=== PATIENT | female | born 1975 | race Caucasian/White ===

== ENCOUNTER → 2020-03-06 13:27 | Outpatient (BNVA) | payer BC, SELFPAY | PROVIDERS: Family Provider Family Medicine; Referring Provider Chiropractor; Visit Provider Podiatrist Foot & Ankle Surgery | DX: M79.672 Pain in left foot (principal) | CPT/HCPCS: 73630 ==

== ENCOUNTER 2020-04-22 16:36 | Outpatient (CLI) | payer BC, SELFPAY | END 2020-04-22 16:37 | disposition home or self-care (01) | LOC: SPT 16:36 | PROVIDERS: Family Provider Family Medicine; Visit Provider Podiatrist Foot & Ankle Surgery | DX: Z46.89 Encounter for fitting and adjustment of other specified devices (principal); M20.21 Hallux rigidus, right foot | CPT/HCPCS: L3030 ==

== ENCOUNTER → 2020-08-05 10:54 | Outpatient (BNVA) | payer BC, SELFPAY | PROVIDERS: Family Provider Family Medicine; Visit Provider Podiatrist Foot & Ankle Surgery | DX: Z20.822 Contact with and (suspected) exposure to COVID-19 (principal) | CPT/HCPCS: 87635 ==

== ENCOUNTER 2020-08-09 05:46 | Day surgery (SDC) | payer BC, SELFPAY ==
[2020-08-08 13:41] VITALS: BMI 25.0
[2020-08-09 06:12] VITALS: BP 104/73; PULSE 67; RESP 18; TEMP 36.6; O2SAT 100
--- NOTE | 2020-08-09 06:32 | W.PM.OPSUD ---
Surgery/Procedure H&P Update DATE OF PROCEDURE: August 09, 2020 DATE H&P PERFORMED: 07/15/20 H&P UPDATE INFORMATION: I have reviewed H&P completed within last 30 days, I have examined patient prior to procedure and No changes to prior documentation PREOP DIAGNOSIS: Hallux rigidus left foot PLANNED PROCEDURE: Operation Date: 08/09/20 07:00 Proposed Procedures p 46060/Cheilectomy Left Foot M79.673(Left) - Ras Benson DPM
[2020-08-09] MEDS: sodium chloride 0.9% 1,000 ML 30 ML IV (06:50)
[2020-08-09] MEDS: clindamycin 600 MG/50 ML PREMIX 100 MG IV (06:59)
[2020-08-09 07:38] VITALS: BP 93/70; PULSE 80; RESP 18; TEMP 36.4; O2SAT 98
--- NOTE | 2020-08-09 07:38 | XR_ITS ---
WS: [id number] Left foot, 3 views, 08/09/2020 Clinical Data: post op cheilectomy Comparison: Left foot, 03/06/2020. Findings: No fractures or dislocations are seen. No bone destruction or erosion is noted. The joint spaces and soft tissues are normal. XR/XR foot LT min 3V* [id number] Impression: Negative left foot.
--- NOTE | 2020-08-09 07:39 | P.OP_ITS ---
Operative Report Date of procedure: August 09, 2020 Pre-op Diagnosis: Hallux rigidus left foot Post-op diagnosis: same Post-op Findings: Osteochondral defect at the second quadrant left first metatarsal, dorsal enthesophyte at the first metatarsal head and proximal phalanx base left first metatarsophalangeal joint Procedure Done: Cheilectomy, left foot CPT code 21204 Implants: 3-0 Vicryl, 4-0 Vicryl, 5-0 Monocryl Specimens removed/disposition: None Pathology: none sent Surgeon: Ras Benson D.P.M. Metal Mine Inspector: Rip Anesthesia: MAC Estimated blood loss: Less than 5 mL Tourniquet time: Less than 30 minutes, see intraoperative documentation IV fluids: None Urine output: None Complications: None Findings: See postop findings above Condition: stable Disposition: PACU Brief History: Ms. Evans is a pleasant 45-year-old female who has had progressive pain in her left first metatarsophalangeal joint that at this point is affecting her everyday life and ability to enjoy recreational activities. She does have history of injury where she has an avulsion fracture at the lateral aspect of the proximal phalanx left hallux. Conservative treatments h ave included oral steroidal and nonsteroidal anti-inflammatories. Offloading, functional orthotic with reverse Aguilar's pad and stretching exercises with supportive shoes. This is failed to alleviate her pain and would like to discuss surgical options. Risks include pain, bleeding, numbness, infection, hypersensitivity, permanent numbness, permanent swelling, bruising, surgical site dehiscence, painful scar, keloid scar, limited range of motion of the first metatarsophalangeal joint, failure to alleviate pain and need for further surgical intervention. Patient is agreeable wishes to proceed. She was interviewed preoperatively, informed consent is signed, I initialed her left foot. No guarantees written, expressed or implied. Procedure: Under mild sedation the patient was brought to the operating room and placed on the operating table in supine position. A timeout was performed. Anesthesia was administered by the anesthesia service. Local anesthesia injected by myself consisting of 30 cc of 0.5% Marcaine plain and a left Ling block fashion. Well-padded pneumatic tourniquet applied to the left ankle. Left lower extremity was scrubbed, prepped and draped utilizing normal aseptic technique. Left foot was examined a weighted with an Esmarch bandage and a tourniquet inflated to 250 mmHg. Attention was directed to the dorsal medial aspect of the first metatarsophalangeal joint of the left foot. A linear longitudinal incision was made with a #15 blade through skin with dissection carried down through subcutaneous tissue down the layer of capsule and periosteum. Fresh blade utilized to perform capsular and periosteal incision in the head of the first metatarsal and the base of the proximal phalanx were directly visualized. There is bony hypertrophy of the first metatarsal head dorsally and medially with bony overgrowth this was resected with a sagittal saw and smoothed with a rongeur and file. A small lip at the base of the proximal phalanx dorsally also excised utilizing a rongeur. I was able to visualize the first metatarsal head which showed a osteochondral defect measuring 2 mm x 3 mm with well adhered margins without any elevation of cartilage this was at the second quadrant of the first metatarsal or 2 o'clock position. Incision site was flushed with copious amounts of sterile saline solution. Range of motion was performed at the first metatarsal phalangeal joint this was smooth without crepitus with increased dorsiflexion able to obtain 60 degrees intraoperatively. Joint capsule periosteum closed utilizing 3-0 Vicryl. Subcutaneous tissue closed utilizing 4- 0 Vicryl and skin reapproximated utilizing 5-0 Monocryl in a running intracuticular fashion. 10 cc of Exparel infiltrated in a grid like fashion subcutaneously per manufacture recommendation at the operative site. Incision site was dressed with Adaptic, sterile 4 x 4, Kerlix and Anthony wrap, cam boot was applied. Tourniquet was deflated and a prompt hyperemic response was noted to the distal digits of the left foot. Patient tolerated the procedure well and was transferred to the PACU with vital signs stable and vascular status intact. Following a period of postoperative monitoring will be discharged home. Was given my cell phone number and discharge instructions as well as follow-up.
[2020-08-09 08:08] VITALS: BP 102/70; PULSE 80; RESP 18; O2SAT 100
--- NOTE | 2020-08-09 10:03 | ANES.PREANE2 ---
Pre-Anesthetic Assessment Pre-Anesthetic Assessment: Height/Weight: Height 1.7 m Weight 72.575 kg Temp Pulse Resp BP Pulse Ox 97.5 F L 80 18 102/70 100 08/09/20 07:38 08/09/20 08:08 08/09/20 08:08 08/09/20 08:08 08/09/20 08:08 Preop Diagnosis: Hallux rigidus left foot Proposed Procedure: Operation Date: 08/09/20 07:00 Proposed Procedures p 59767/Cheilectomy Left Foot M79.673(Left) - Ras Benson, DPM Was Beta Saul taken within 24 hours: N/A Last intake: Intake Last Liquid Date 08/08/20 Last Solid Date 08/08/20 Social: Social History: No alcohol and No tobacco Exam: Pre-Anes Outpt Exam: alert, oriented x 3, clear to auscultation bilaterally and regular rate & rhythm Airway: Submandibular: WNL Cervical ROM: WNL MP: 2 Dentition: Full Neuropsych: Neuropsych: TUCKER Anesthetic Plan: ASA status: 1 Anesthesia: MAC Risk of > 500 ml blood loss (7ml/kg in children): No PFSH Anesthesia PFSH: Surgical History History of back surgery History of bladder repair surgery History of hysterectomy Family History Mother Cancer Other Diabetes Social History Smoking and tobacco status: never smoked Household members: spouse and children Marital status: Current occupational status: employed Data Anesthesia Cardiac Studies: No Data to Display
--- NOTE | 2020-08-09 10:03 | ANE.PACU2 ---
Inpatient post-anesthesia follow up: Airway intact: Yes Vital signs: Temperature 97.5 F Pulse Rate 80 Respiratory Rate 18 Blood Pressure 102/70 Pulse Oximetry 100 Oxygen Delivery Me thod Room Air Oxygen Flow Rate Fraction of Inspir ed Oxygen Hydration adequate: Yes Nausea and vomiting: No Pain level: 1 Mental status: Baseline
== END 2020-08-09 08:30 | disposition home or self-care (01) ==
PROVIDERS: PCP Internal Medicine; Visit Provider Podiatrist Foot & Ankle Surgery
PROC: (CPT 28289; principal; 2020-08-09 07:00)
DX: M20.22 Hallux rigidus, left foot (principal)
CPT/HCPCS: 28289; 73630; C9290; J2704; J3010; J3490; J7030

== ENCOUNTER → 2020-09-05 15:42 | Outpatient (BNVA) | payer BC, SELFPAY | PROVIDERS: PCP Internal Medicine; Visit Provider Podiatrist Foot & Ankle Surgery | DX: M20.22 Hallux rigidus, left foot (principal); Z98.890 Other specified postprocedural states | CPT/HCPCS: 73630 ==

== ENCOUNTER 2020-09-17 10:28 | Outpatient (CLI) | payer BC, SELFPAY ==
[2020-09-17 10:48] LABS: Basophils % 1.1 %; Eosinophils # 0.2 10^3/uL (0.0-0.8); Eosinophils % 5.9 %; Hematocrit 40.5 % (37.0-47.0); Hemoglobin 13.5 g/dL (11.5-15.3); Lymphocytes # 1.7 10^3/uL (0.8-4.8); Lymphocytes % 46.5 %; Mean Corpuscular HGB Conc 33.3 g/dL (30.0-36.0); Mean Corpuscular Hemoglobin 32.1 pg (28.0-34.0); Mean Corpuscular Volume 96.2 fL (81-99); Mean Platelet Volume 9.1 fL (7.4-10.4); Monocytes # 0.3 10^3/uL (0.2-0.9); Neutrophils # 1.33 10^3/uL (1.8-7.7); Neutrophils % 37.5 %; Nucleated Red Blood Cells % 0 %; Platelet Count 214 10^3/cmm (130-400); Red Blood Count 4.21 10^6/uL (4.1-5.3); Red Cell Distribution Width 11.7 % (12.1-15.1); White Blood Count 3.6 10^3/uL (4.0-10.0)
[2020-09-17 11:04] LABS: Blood Urea Nitrogen 18 mg/dL (6-20); C Reactive Protein 7.4 mg/L (0.0-4.9); Calcium 8.8 mg/dL (8.5-10.5); Carbon Dioxide 27 mmol/L (22-29); Chloride 98 mmol/L (98-107); Glomerular Filtration Rate 68.3 mL/min (90-130); Glucose 89 mg/dL (65-115); Osmolality Calculated 279 mOsm/kg (285-295); Sodium 134 mmol/L (136-145)
[2020-09-17 11:31] LABS: Erythrocyte Sedimentation Rate 9 mm/hr (0-15)
== END 2020-09-17 10:29 | disposition home or self-care (01) ==
PROVIDERS: PCP Internal Medicine; Visit Provider Podiatrist Foot & Ankle Surgery
DX: T81.41XA Infection following a procedure, superficial incisional surgical site, initial encounter (principal)
CPT/HCPCS: 36415; 80048; 85025; 85651; 86140

== ENCOUNTER → 2020-09-19 15:25 | Outpatient (BNVA) | payer BC, SELFPAY | PROVIDERS: PCP Internal Medicine; Visit Provider Podiatrist Foot & Ankle Surgery | DX: T81.41XA Infection following a procedure, superficial incisional surgical site, initial encounter (principal); M20.22 Hallux rigidus, left foot; Z98.890 Other specified postprocedural states | CPT/HCPCS: 73630 ==

== ENCOUNTER 2020-11-06 11:56 | Outpatient (CLI) | payer BC, SELFPAY ==
--- NOTE | 2020-11-06 12:01 | MM_ITS ---
WS: [id number] SCREENING DIGITAL MAMMOGRAM WITH CAD HISTORY: SCREENING COMPARISON: 09/23/2018 and 06/26/2016 Bilateral CC and MLO views submitted. Computer aided detection analyzed. Breast composition: The breasts are heterogeneously dense, which may obscure small masses. Stable mas s in the LEFT breast near 3:00 posteriorly. This mass measures 10 mm and is slightly lobulated contai aneudy calcification. There is a new partially obscured lobulated nodule in the posterior LEFT breast n ear 9:00. Increased asymmetry and slight distortion in the superior RIGHT breast on the MLO. MM/[place] [id number] IMPRESSION: BI-RADS: 0-Incomplete: Need additional imaging evaluation FOLLOW UP: Need Additional Imaging LEFT breast: Spot compression views (CC and MLO). True ML. Exaggerated lateral CC. Ultrasound to follow if abnormality persists. RIGHT breast: Spot compression views (CC and MLO). True ML. Ultrasound to follo w if abnormality persists.
== END 2020-11-06 11:57 | disposition home or self-care (01) ==
LOC: RADSHAW 11:59
PROVIDERS: PCP Family Medicine; Visit Provider Family Medicine
DX: Z12.31 Encounter for screening mammogram for malignant neoplasm of breast (principal)
CPT/HCPCS: 77067

== ENCOUNTER 2020-11-20 10:05 | Outpatient (CLI) | payer BC, SELFPAY ==
--- NOTE | 2020-11-20 10:13 | US_ITS ---
WS: [id number] ADDITIONAL VIEWS BILATERAL MAMMOGRAM AND BILATERAL BREAST ULTRASOUND (limited RIGHT and incomplete LE FT breast ultrasound). ADDITIONAL VIEWS BILATERAL MAMMOGRAM HISTORY: ABNORMAL MAMMOGRAM COMPARISON: 09/23/2018 and 09/21/2017 Right breast: Asymmetry persists in the upper outer quadrant. Partially obscured nodules and mild inc reased density. The remaining breast is stable with dense fibroglandular tissue. Left breast: There are multiple partially obscured nodules within the LEFT breast. These are scattere d above and below the nipple line and medial and lateral breast. One of these nodules contains calcif ications measuring 12 mm in the upper outer quadrant. Breast ultrasound will be performed. BREAST ULTRASOUND RIGHT breast, limited. In the upper outer quadrant of the RIGHT breast at 9:00, 2 cm from the nipple is a simple cyst measuring 4 x 4 by 5 mm. There are additional numerous cysts in the upper outer quad rant. There is a larger lobulated cyst which probably corresponds to the mammographic abnormality epifanio suring 1.2 x 1.3 x 0.7 cm. LEFT breast, complete. Multiple cysts are noted within the breast. There is a solid mass at 3:00, 1 cm from the nipple which contains a biopsy clip. This mass measures 1.0 x 1.0 x 0.8 cm and was a benign fibroadenoma. There i s an additional hypoechoic mass with central increased echogenicity at 6:00, 1 cm from the nipple whi ch may be a small lymph node. There is a cyst at 9:00 1 cm from the nipple measuring 1.0 x 0.8 x 0.7 cm. US/US breast BI limited* [id number] IMPRESSION: BI-RADS: 2-Benign FOLLOW UP: 1 Year Follow-up
== END 2020-11-20 10:06 | disposition home or self-care (01) ==
LOC: RADSHAW 10:06
PROVIDERS: PCP Family Medicine; Visit Provider Family Medicine
DX: R92.8 Other abnormal and inconclusive findings on diagnostic imaging of breast (principal); N60.02 Solitary cyst of left breast; N60.01 Solitary cyst of right breast; N63.25 Unspecified lump in the left breast, overlapping quadrants
CPT/HCPCS: 76642; 77066

== ENCOUNTER 2021-01-12 19:35 | Emergency (ER) | payer BC, SELFPAY ==
[2021-01-12 19:36] VITALS: BP 129/85; PULSE 75; RESP 21; TEMP 36.7; O2SAT 99; BMI 25.0
--- NOTE | 2021-01-12 20:03 | CTR_ITS ---
PROCEDURE INFORMATION: Exam: CT Abdomen And Pelvis Without Contrast Exam date and time: 01/12/2021 8:03 PM Age: 45 years old Clinical indication: Abdominal pain; Right; Prior surgery; Surgery date: 6+ months; Surgery type: Back, hyst, bladder; Patient HX: C/O R flank and R groin pain; Additional info: Right flank and groin pain TECHNIQUE: Imaging protocol: Computed tomography of the abdomen and pelvis without contrast. Sagittal and coronal reformatted images were created and reviewed. Radiation optimization: All CT scans at this facility use at least one of these dose optimization techniques: automated exposure control; mA and/or kV adjustment per patient size (includes targeted exams where dose is matched to clinical indication); or iterative reconstruction. COMPARISON: [place] [id number] 12/19/2014 12:32 PM RADIATION DOSE METRICS: Total DLP (mGy-cm): 1014.75 FINDINGS: Limitations: Evaluation of solid organs and vasculature is limited without intravenous contrast. This is standard protocol for evaluation of possible urolithiasis. Lungs: Visualized lungs are clear. Pleural spaces: No pleural effusion. Heart: Visualized portions of the heart are unremarkable. Liver: The liver is unremarkable. Gallbladder and bile ducts: The gallbladder is unremarkable. No biliary ductal dilatation. Pancreas: The pancreas is unremarkable. No pancreatic ductal dilatation. Spleen: The spleen is unremarkable. Adrenal glands: The right and left adrenal glands are unremarkable. Kidneys and ureters: Nonobstructing stone in the right kidney measuring 2.3 mm. 2.0 mm stone at the right ureterovesicular junction with moderate right hydroureteronephrosis and mild right perinephric/periureteral inflammation. The left kidney is unremarkable. The left ureter is unremarkable. Stomach and bowel: Small hiatal hernia. No acute abnormality in the small bowel. No acute abnormality in the colon. Appendix: The appendix is visualized and is unremarkable. No findings to suggest acute appendicitis. Intraperitoneal space: No free intraperitoneal air. No ascites. No loculated fluid collections to suggest an abscess. Vasculature: Mild atherosclerotic changes in the visualized arteries. No evidence for aortic aneurysm. Lymph nodes: No lymphadenopathy. Urinary bladder: The bladder is incompletely filled, which can limit evaluation. No focal abnormality in the bladder however. Reproductive: Patient has had a previous hysterectomy. Patient has had a previous bilateral oophorectomy. Bones/joints: Bone islands in the right femoral head. Mild degenerative changes in the visualized spine. Stable anterior fusion at L4-L5. Soft tissues: No acute abnormality in the extra-abdominal soft tissues. CT/CT kidney stone [id number] IMPRESSION: 1. 2.0 mm stone at the right ureterovesicular junction with moderate right hydroureteronephrosis and mild right perinephric/periureteral inflammation. 2. Nonobstructing right renal stone. 3. Small hiatal hernia. 4. Incidental/nonacute findings are listed in the report. Radiation Dose CTDIVOL = (mGy): DLP = 1014.75 (mGy-cm)
--- NOTE | 2021-01-12 20:14 | W.ED.ABDPA2 ---
HPI - Abdominal Pain General: Chief Complaint: Abdominal Pain Stated Complaint: Pain Rt Side and Back Time Seen by Provider: 01/12/21 20:02 History of Present Illness: HPI narrative: Patient complains about right flank pain that radiates into the groin for the last 4 to 5 hours before arriving the ER. Has no history of kidney stone does have a history of postlaminectomy syndrome. Patient says she feels pressure in the lower right area of her groin. MD elicited complaint: flank pain Onset (ago): hour(s) Pain Consistency: constant Location: RLQ, R flank and Groin Severity: severe Quality: aching and sharp Exacerbating factors: nothing Relieving factors: nothing Associated Symptoms: Reports no associated symptoms; Denies chills, fever(s), nausea and vomiting Review of Systems Const: Denies: fever(s), chills or body aches Eyes: Denies: change in vision or blurry vision ENMT: Denies: throat pain or nasal congestion Card: Denies: chest pain or dyspnea on exertion Resp: Denies: dyspnea, productive cough or non-productive cough GI: Denies: abdominal pain, nausea or vomiting : Reports: flank pain Musc: Denies: extremity pain Skin/Breast: Denies: rash Neuro: Denies: headache(s) Psych: Denies: anxiety or depression Bert/Lymph: Denies: easy bruising PFSH ED PFSH: Medical History Depression Surgical History History of back surgery History of bladder repair surgery History of hysterectomy Family History Mother Cancer Other Diabetes Social History Smoking and tobacco status: never smoked Household members: spouse and children Marital status: Current occupational status: employed History of recent travel: No Financial difficulty paying for basics: Decline to Answer Physical Exam Const: COMMON NORMALS: no acute distress, average body habitus and patient oriented x3 HENMT: COMMON NORMALS: normocephalic HEAD & SCALP: normal to inspection and normocephalic FACE & SINUS: normal facial exam Eye: COMMON NORMALS: conjunctivae normal GENERAL EYE: appearance normal, both eyes and all related structures CONJUNCTIVA: Yes conjunctivae normal Neck/C-Spine: COMMON NORMALS: no JVD Chest: COMMONS NORMALS: normal inspection of the chest Resp: COMMON NORMALS: normal respiratory effort and clear to auscultation bilaterally AUSCULTATION: clear to auscultation bilaterally Cardio: COMMON NORMALS: no JVD, regular rate and regular rhythm RATE: regular rate RHYTHM: regular rhythm GI: COMMON NORMALS: Normal to inspection, nondistended, normoactive bowel sounds present AUSCULTATION: Yes normoactive bowel sounds PALPATION: Yes Tenderness to palpation present (GI) Details: RLQ : BLADDER/KIDNEY EXAM: Yes CVA tenderness on the right Back/Pelvis: GENERAL BACK: Yes CVA tenderness Extremity: COMMON NORMALS: normal to inspection and full ROM Neuro: COMMON NORMALS: patient oriented x3 Course Vital Signs: Vital signs: Vital Signs Temperature 98.0 F 01/12/21 19:36 Pulse Rate 80 01/12/21 22:27 Respiratory Rate 16 01/12/21 22:27 Blood Pressure 100/58 01/12/21 22:27 Pulse Oximetry 96 01/12/21 22:27 MDM - Abdominal Pain MDM Narrative: Medical decision making narrative: 2 mm urinary calculus at the UV junction on the right. Patient felt much better after pain medication. Patient discharged with a strainer and to follow-up Dr. Avery her primary care if no significant improvement. Lab Data: Labs: Lab Results 01/12/21 01/12/21 01/12/21 Range/Units 20:40 20:40 20:40 WBC 8.5 (4.0-10.0) 10^3/ uL RBC 4.10 (4.1-5.3) 10^6/u L Hgb 13.2 (11.5-15.3) g/dL Hct 39.4 (37.0-47.0) % MCV 96.1 (81-99) fL MCH 32.2 (28.0-34.0) pg MCHC 33.5 (30.0-36.0) g/dL RDW 11.6 L (12.1-15.1) % Plt Count 203 (130-400) 10^3/c mm MPV 9.7 (7.4-10.4) fL Neut % (Auto) 79.9 % Lymph % (Auto) 13.2 % [place] % (Auto) 5.4 % Eos % (Auto) 0.8 % Baso % (Auto) 0.5 % Neut # (Auto) 6.79 (1.8-7.7) 10^3/u L Lymph # (Auto) 1.1 (0.8-4.8) 10^3/u L [place] # (Auto) 0.5 (0.2-0.9) 10^3/u L Eos # (Auto) 0.1 (0.0-0.8) 10^3/u L Baso # (Auto) 0.0 (0.0-0.1) 10^3/u L Nucleated RBC % (a uto) 0 % Nucleated RBCs # 0.0 /100WBC Sodium 138 (136-145) mmol/L Potassium 3.9 (3.5-5.1) mmol/L Chloride 101 (98-107) mmol/L Carbon Dioxide 23 (22-29) mmol/L Anion Gap 17.9 (5-19) BUN 23 H (6-20) mg/dL Creatinine 1.3 H (0.5-0.9) mg/dL GFR Calculation 44.7 L (90-130) mL/min Glucose 123 H (65-115) mg/dL Calculated Osmolal ity 291 (285-295) mOsm/k g Calcium 8.7 (8.5-10.5) mg/dL Total Bilirubin 0.3 (0.15-1.2) mg/dL AST 19 (0-32) U/L ALT 13 (0-33) U/L Alkaline Phosphata se 59 (35-105) IU/L Total Protein 6.1 L (6.6-8.7) g/dL Albumin 4.2 (3.5-5.2) g/dL Globulin 1.9 (1.3-4.6) g/dL Lipase 30 (13-60) U/L HCG, Qual Negative (Negative) Urine Color (Yellow) Urine Appearance (CLEAR) Urine pH (5-7) Ur Specific Gravit y (1.005-1.030) Urine Protein (Negative) Urine Glucose (UA) (Normal) Urine Ketones (Negative) Urine Blood (Negative) Urine Nitrate (Negative) Urine Bilirubin (Negative) Prot Sulfosalicyli c Acd (Negative) Urine Urobilinogen (Negative) mg/dL Ur Leukocyte Kassi ase (Negative) Urine RBC (0-2) /hpf Urine WBC (0-5) /hpf Ur Squamous Epith Cells (0-5) /hpf Amorphous Sediment Urine Bacteria (NONE) /hpf 01/12/21 Range/Units 21:22 WBC (4.0-10.0) 10^3/ uL RBC (4.1-5.3) 10^6/u L Hgb (11.5-15.3) g/dL Hct (37.0-47.0) % MCV (81-99) fL MCH (28.0-34.0) pg MCHC (30.0-36.0) g/dL RDW (12.1-15.1) % Plt Count (130-400) 10^3/c mm MPV (7.4-10.4) fL Neut % (Auto) % Lymph % (Auto) % [place] % (Auto) % Eos % (Auto) % Baso % (Auto) % Neut # (Auto) (1.8-7.7) 10^3/u L Lymph # (Auto) (0.8-4.8) 10^3/u L [place] # (Auto) (0.2-0.9) 10^3/u L Eos # (Auto) (0.0-0.8) 10^3/u L Baso # (Auto) (0.0-0.1) 10^3/u L Nucleated RBC % (a uto) % Nucleated RBCs # /100WBC Sodium (136-145) mmol/L Potassium (3.5-5.1) mmol/L Chloride (98-107) mmol/L Carbon Dioxide (22-29) mmol/L Anion Gap (5-19) BUN (6-20) mg/dL Creatinine (0.5-0.9) mg/dL GFR Calculation (90-130) mL/min Glucose (65-115) mg/dL Calculated Osmolal ity (285-295) mOsm/k g Calcium (8.5-10.5) mg/dL Total Bilirubin (0.15-1.2) mg/dL AST (0-32) U/L ALT (0-33) U/L Alkaline Phosphata se (35-105) IU/L Total Protein (6.6-8.7) g/dL Albumin (3.5-5.2) g/dL Globulin (1.3-4.6) g/dL Lipase (13-60) U/L HCG, Qual (Negative) Urine Color Yellow (Yellow) Urine Appearance Clear (CLEAR) Urine pH 9 H (5-7) Ur Specific Gravit y 1.015 (1.005-1.030) Urine Protein Neg (Negative) Urine Glucose (UA) Norm (Normal) Urine Ketones 2+ H (Negative) Urine Blood 2+ H (Negative) Urine Nitrate Negative (Negative) Urine Bilirubin Neg (Negative) Prot Sulfosalicyli c Acd Negative (Negative) Urine Urobilinogen Norm (Negative) mg/dL Ur Leukocyte Kassi ase Negative (Negative) Urine RBC 0-4 H (0-2) /hpf Urine WBC 0-4 H (0-5) /hpf Ur Squamous Epith Cells 10-15 H (0-5) /hpf Amorphous Sediment Not Reportable Urine Bacteria Trace (NONE) /hpf Discharge Plan Discharge Patient Disposition: Home Clinical Impression: Obstruction of right ureteropelvic junction due to stone Condition: Stable Prescriptions: New hydrocodone-acetaminophen 5-325 mg tablet 1 tab PO TID PRN (Reason: pain) Qty: 10 RF: 0 Flomax 0.4 mg capsule 0.4 mg PO DAILY Qty: 7 RF: 0 No Action estradiol 1 mg tablet 1 mg PO DAILY RF: 0 citalopram 10 mg tablet 10 mg PO DAILY RF: 0 betamethasone valerate 0.1 % ointment 1 applic topical BID Qty: 45 RF: 3 triamcinolone acetonide 0.1 % ointment 1 applic topical BID Qty: 80 RF: 1 cyanocobalamin (vitamin B-12) 5,000 mcg capsule 5,000 mcg PO DAILY RF: 0 cholecalciferol (vitamin D3) 125 mcg/mL (5,000 unit/mL) drops 12.5 mcg PO DAILY RF: 0 multivitamin with minerals [Hair,Skin and Nails] Tablet 1 tab PO DAILY RF: 0 ascorbic acid (vitamin C) 1,000 mg tablet extended release 2,000 mg PO Q12H RF: 0 tumeric PO RF: 0 omega-3 fatty acids [Fish Oil Concentrate] 1,000 mg capsule 1,000 mg PO DAILY RF: 0 apple cider vinegar 600 mg capsule PO RF: 0 Adult 50 Plus Probiotic 4 billion cell capsule PO RF: 0 sulfamethoxazole-trimethoprim [Bactrim DS] 800-160 mg tablet 1 tab PO BID 7 Days Qty: 14 RF: 0 Discharge Orders: Discharge ED (Routine); Ordered 01/12/21 Ordered By: Freedom Norris Referrals: Nickolas Mir MD [Primary Care Provider] - Discharge Diet: Usual diet Discharge Activity: Increase activity as tolerated Patient Instructions: Kidney Stones (ED), How to Strain Your Urine (ED), Opioid Safety Activity Restrictions/Additional Instructions: Follow-up with medical provider as directed. Take medications as prescribed. Return to the ER or your medical provider if condition worsens. Please read and understand discharge instructions. If any questions ask please. Coding Level of Care Code ED Vibrating Screed Operator for Harshad Fwd Exam Comprehensive
[2021-01-12] MEDS: sodium chloride 0.9% 1,000 ML 999 ML IV (20:39)
[2021-01-12] MEDS: ondansetron 2 mg/ML SDV 2 mL 4 MG IVP (20:39)
[2021-01-12] MEDS: ketorolac 30 mg/mL INJ IVP (20:39)
[2021-01-12 20:44] VITALS: BP 112/71; PULSE 69; RESP 18; O2SAT 100
[2021-01-12 20:49] LABS: Basophils % 0.5 %; Eosinophils # 0.1 10^3/uL (0.0-0.8); Eosinophils % 0.8 %; Hematocrit 39.4 % (37.0-47.0); Hemoglobin 13.2 g/dL (11.5-15.3); Lymphocytes # 1.1 10^3/uL (0.8-4.8); Lymphocytes % 13.2 %; Mean Corpuscular HGB Conc 33.5 g/dL (30.0-36.0); Mean Corpuscular Hemoglobin 32.2 pg (28.0-34.0); Mean Corpuscular Volume 96.1 fL (81-99); Mean Platelet Volume 9.7 fL (7.4-10.4); Monocytes # 0.5 10^3/uL (0.2-0.9); Monocytes % 5.4 %; Neutrophils # 6.79 10^3/uL (1.8-7.7); Neutrophils % 79.9 %; Nucleated Red Blood Cells % 0 %; Platelet Count 203 10^3/cmm (130-400); Red Cell Distribution Width 11.6 % (12.1-15.1); White Blood Count 8.5 10^3/uL (4.0-10.0)
[2021-01-12 20:58] LABS: HCG, Serum Qual Negative (Negative)
[2021-01-12 21:08] LABS: Alanine Aminotransferase 13 U/L (0-33); Albumin Level 4.2 g/dL (3.5-5.2); Alkaline Phosphatase 59 IU/L (35-105); Anion Gap 17.9 (5-19); Aspartate Amino Transferase 19 U/L (0-32); Blood Urea Nitrogen 23 mg/dL (6-20); Calcium 8.7 mg/dL (8.5-10.5); Carbon Dioxide 23 mmol/L (22-29); Chloride 101 mmol/L (98-107); Globulin 1.9 g/dL (1.3-4.6); Glomerular Filtration Rate 44.7 mL/min (90-130); Glucose 123 mg/dL (65-115); Lipase 30 U/L (13-60); Osmolality Calculated 291 mOsm/kg (285-295); Potassium 3.9 mmol/L (3.5-5.1); Sodium 138 mmol/L (136-145); Total Bilirubin 0.3 mg/dL (0.15-1.2); Total Protein 6.1 g/dL (6.6-8.7)
[2021-01-12] MEDS: morphine 4 mg/mL SDV 1 mL IVP (22:00)
[2021-01-12] MEDS: HYDROcodone-acetaminophen 5-325 mg Tablet 1 TAB PO (22:00)
[2021-01-12] MEDS: tamsulosin 0.4 mg Capsule 0.8 MG PO (22:01)
[2021-01-12 22:02] LABS: Add Urine Microscopic? YES; Bacteria Urine TRACE /hpf; Bilirubin Urine Neg (Negative); Blood Urine 2+ (Negative); Glucose Urine UA Norm (Normal); Ketones Urine 2+ (Negative); Leukocyte Esterase Urine Negative (Negative); Nitrate Urine Negative (Negative); Protein Urine Neg (Negative); RBC Urine 0-4 /hpf (0-2); Specific Gravity, Urine 1.015 (1.005-1.030); Sulfosalicylic Acid Urine Negative (Negative); Urine Appearance Clear (CLEAR); Urine Color Yellow (Yellow); Urobilinogen Urine Norm (Negative); WBC Urine 0-4 /hpf (0-5); pH Urine 9 (5-7)
[2021-01-12 22:27] VITALS: BP 100/58; PULSE 80; RESP 16; O2SAT 96
--- NOTE | 2021-01-13 10:43 | DCPLANNER ---
process manager had message to schedule a follow up appointment for patient with Dr. Avery. Case called the office of Dr. Avery, spoke with Reyna, gave clinic patients information. process manager was told that patients information would be printed and reviewed. Clinic will call patient with appointment information.
--- NOTE | 2021-01-14 14:40 | DCPLANNER ---
Patient had a follow up appointment scheduled for 01.14.[address] Avery - patient did attend appointment.
== END 2021-01-12 22:40 | disposition home or self-care (01) ==
PROVIDERS: Emergency Provider Nurse Practitioner Family; PCP Family Medicine
DX: N20.1 Calculus of ureter (principal)
CPT/HCPCS: 74176; 80053; 81001; 83690; 84703; 85025; 96361; 96374; 96375; 99284; J1885; J2270; J2405; J7030

== ENCOUNTER 2021-01-14 11:50 | Outpatient (CLI) | payer BC, SELFPAY ==
--- NOTE | 2021-01-14 12:00 | XR_ITS ---
WS: [id number] ABDOMEN: SUPINE FILM HISTORY: UVJ STONE COMPARISON: CT 01/12/2021 Normal bowel gas pattern. No organomegaly. Prior lumbar fixation at L4-5. Right kidney: No renal calcification. Again noted is a 2 to 3 mm calcification in the expected locati on of the distal RIGHT ureter which corresponds to the CT findings. Left kidney: No renal or ureteral stone identified. XR/XR KUB [id number] IMPRESSION: 2-3 mm calcification persists in the expected location of the distal RIGHT uret er as seen on the recent CT.
== END 2021-01-14 11:51 | disposition home or self-care (01) ==
LOC: RAD 11:52
PROVIDERS: PCP Family Medicine; Visit Provider Urology
DX: N20.1 Calculus of ureter (principal)
CPT/HCPCS: 74018

== ENCOUNTER 2021-01-17 07:57 | Outpatient (CLI) | payer BC, SELFPAY ==
--- NOTE | 2021-01-17 08:00 | XR_ITS ---
WS: [id number] KUB, AP view, 01/17/2021 Clinical Data: stones Comparison: KUB, 01/14/2021. Findings: No abnormal intraabdominal masses are seen. There is no dilatated small bowel or evidence of obstruct ion. There are phleboliths in the true pelvis. There is a calcification on the right side of the true pelv is which could represent the UVJ stone. Fecal material in colon gas obscure detail over both kidneys. The patient's had anterior fusion of the lumbar spine at L4-L5. XR/XR KUB [id number] Impression: 1. Possible right UVJ stone. 2. Fecal material and colon gas obscure detail over both kidneys.
== END 2021-01-17 07:58 | disposition home or self-care (01) ==
PROVIDERS: PCP Family Medicine; Visit Provider Urology
DX: N20.9 Urinary calculus, unspecified (principal)
CPT/HCPCS: 74018; 81003

== ENCOUNTER → 2021-05-12 12:02 | Outpatient (BNVA) | payer BC, SELFPAY | PROVIDERS: PCP Family Medicine; Visit Provider Podiatrist Foot & Ankle Surgery | DX: Z01.818 Encounter for other preprocedural examination (principal); Z20.822 Contact with and (suspected) exposure to COVID-19 | CPT/HCPCS: 73630; 87635 ==

== ENCOUNTER 2021-05-16 08:28 | Day surgery (SDC) | payer BC, SELFPAY ==
[2021-05-15 14:28] VITALS: BMI 25.0
[2021-05-16 09:04] VITALS: BP 110/74; PULSE 64; RESP 18; TEMP 36.7; O2SAT 99
--- NOTE | 2021-05-16 09:20 | W.PM.OPSUD ---
Surgery/Procedure H&P Update DATE OF PROCEDURE: May 16, 2021 DATE H&P PERFORMED: 05/12/21 H&P UPDATE INFORMATION: I have reviewed H&P completed within last 30 days, I have examined patient prior to procedure, No changes to prior documentation and [place] [facility] [place] indicated PREOP DIAGNOSIS: Hallux rigidus left PLANNED PROCEDURE: Operation Date: 05/16/21 09:50 Proposed Procedures p Left first metatarsophalangeal joint arthroplasty with implant 46002 M20.22(Left) - Ras Benson DPM
--- NOTE | 2021-05-16 09:31 | PM.OP ---
Operative Report Date of procedure: May 16, 2021 Pre-op Diagnosis: Hallux rigidus left Post-op diagnosis: same Post-op Findings: Osteochondral defect to the left first metatarsal head. Procedure Done: Left first metatarsophalangeal joint arthroplasty with implant [id number] Implants: Cartiva 10 mm x 10 mm 3-0 Vicryl, 4-0 Vicryl, 4-0 nylon Pathology: none sent Surgeon: Ras Benson D.P.M. Director Of Trauma: Robert Anesthesia: MAC Estimated blood loss: 5 Tourniquet time: 26 IV fluids: 0 Urine output: 0 Complications: 0 Findings: Cartilage defect to the left first metatarsal head Condition: stable Disposition: PACU Brief History: Has had progressive pain at the left first metatarsophalangeal joint with everyday activities standing and walking described in nature pain is sharp exacerbated by activity would like to discuss surgical options my recommendation was cheilectomy with interpositional implant. Risks include pain, bleeding, numbness, infection, hardware failure, need for further intervention as there would likely be progression of degeneration of the joint. Discussed this being a procedure that would not burn any bridges down the road for possible total joint replacement versus arthrodesis. Risks discussed at length. Covid negative, informed consent signed also initialed her left foot. No guarantees written, expressed or implied. Patient wishes to proceed. Procedure: Under mild sedation the patient was brought to the operating room and remained on the gurney in supine position. A timeout was performed. Anesthesia was then administered by the anesthesia service. Local anesthesia injected by myself 20 cc of one-to-one mixture 0.5% Marcaine plain and 1% lidocaine and a left Ling block fashion. Well-padded pneumatic tourniquet applied to the left ankle. Left lower extremity was scrubbed, prepped and draped utilizing normal aseptic technique. Left foot was wrapped with an Esmarch bandage and a tourniquet inflated to 250 mmHg. Attention was directed to the dorsal medial aspect of the left first metatarsophalangeal joint where over previous cicatrix a linear longitudinal incision was made with a #15 blade with dissection carried down to the joint capsule utilizing a combination of blunt and sharp technique. Care was taken to retract and preserve neurovascular and tendinous structures. All bleeders were ligated and cauterized as necessary. Linear capsulotomy was performed and the head of the first metatarsal was exposed able to see approximately 30% of the cartilage surface was absent with subchondral bone exposed entirely second quadrant of the first metatarsal head and leaching out to the first and third to some degree. Cartilage was inspected at the margin no free floating or flapping cartilage appreciated. 1 cm hole was drilled out centrally followed by insertion of interpositional spacer followed by saline flush and closed in a layered fashion with 3-0 Vicryl, 4-0 Vicryl and 4-0 nylon. Dressings consisting of Adaptic, sterile 4 x 4, Kerlix and Anthony wrap were applied. Smooth range of motion of the first metatarsal phalangeal joint was appreciated intraoperatively. Tourniquet was deflated and a prompt hyperemic response was noted to the distal digits of the left foot. Patient tolerated the procedure well and was transferred to the PACU with vital signs stable and vascular status intact. She was dispensed a cam boot will be wearing this and be weightbearing as tolerated.
[2021-05-16] MEDS: sodium chloride 0.9% 1,000 ML 30 ML IV (09:33)
[2021-05-16] MEDS: clindamycin 600 MG/50 ML PREMIX 100 MG IV (09:38)
[2021-05-16] MEDS: lidocaine 1% INJ 20 mL XX (10:15)
[2021-05-16 10:25] VITALS: BP 91/62; PULSE 70; RESP 16; TEMP 36.8; O2SAT 97
[2021-05-16 10:30] VITALS: BP 91/60; PULSE 72; RESP 12; O2SAT 99
[2021-05-16 10:35] VITALS: BP 93/68; PULSE 65; RESP 17; TEMP 36.2; O2SAT 98
[2021-05-16 10:36] VITALS: BP 94/66; PULSE 61; RESP 17; TEMP 36.1; O2SAT 98
--- NOTE | 2021-05-16 10:41 | XR_ITS ---
WS: [email or web address] Exam: XR foot LT min 3V* [id number] Date/Time of Exam: 05/16/2021 11:12 AM Reason For Exam: post op Comparison 05/12/2021. There is postoperative change involving the distal first metatarsal. Small amount of air in the adjac ent soft tissues. No other postoperative changes are identified. The left foot is otherwise normal in appearance XR/XR foot LT min 3V* [id number] IMPRESSION: 1. Postoperative changes involving the distal first metatarsal.
[2021-05-16 11:14] VITALS: BP 94/58; PULSE 65; RESP 17; TEMP 36.2; O2SAT 98
--- NOTE | 2021-05-16 14:00 | ANE.PACU2 ---
Inpatient post-anesthesia follow up: Airway intact: Yes Vital signs: Temperature 97.1 F Pulse Rate 65 Respiratory Rate 17 Blood Pressure 94/58 Pulse Oximetry 98 Oxygen Delivery Me thod Room Air Oxygen Flow Rate Fraction of Inspir ed Oxygen Hydration adequate: Yes Nausea and vomiting: No Pain level: 2 Mental status: Baseline
--- NOTE | 2021-05-16 14:00 | ANES.PREANE2 ---
Pre-Anesthetic Assessment Pre-Anesthetic Assessment: Height/Weight: Height 1.7 m Weight 72.575 kg Temp Pulse Resp BP Pulse Ox 97.1 F L 65 17 94/58 98 05/16/21 11:14 05/16/21 11:14 05/16/21 11:14 05/16/21 11:14 05/16/21 11:14 Preop Diagnosis: Hallux rigidus left Proposed Procedure: Operation Date: 05/16/21 09:50 Proposed Procedures p Left first metatarsophalangeal joint arthroplasty with implant 00677 M20.22(Left) - MARCO AponteM Was Beta Saul taken within 24 hours: N/A Was Clonidine taken within 24 hours: N/A Last intake: Intake Last Liquid Date 05/15/21 Last Liquid Time 20:00 Last Solid Date 05/15/21 Last Solid Time 17:30 Social: Social History: No alcohol and No tobacco Exam: Pre-Anes Outpt Exam: alert, oriented x 3, clear to auscultation bilaterally and regular rate & rhythm Airway: Submandibular: WNL Cervical ROM: WNL MP: 2 Dentition: Full Pulmonary: Pulmonary: Asthma Musc/skel: Musc/skel: OA/DJD Neuropsych: Neuropsych: Anxiety Anesthetic Plan: ASA status: 2 Anesthesia: MAC Risk of > 500 ml blood loss (7ml/kg in children): No PFSH Anesthesia PFSH: Medical History Depression Surgical History History of back surgery History of bladder repair surgery History of hysterectomy Family History Mother Cancer Other Diabetes Social History Household members: spouse and children Marital status: Current occupational status: employed History of recent travel: No Financial difficulty paying for basics: Decline to Answer Data Anesthesia Cardiac Studies: No Data to Display
== END 2021-05-16 11:22 | disposition home or self-care (01) ==
PROVIDERS: PCP Family Medicine; Visit Provider Podiatrist Foot & Ankle Surgery
PROC: (CPT 28750; principal; 2021-05-16 09:45)
DX: M79.672 Pain in left foot (principal); Z88.1 Allergy status to other antibiotic agents
CPT/HCPCS: 28291; 73630; 96365; C1713; J2250; J2704; J3010; J3490; J7030

== ENCOUNTER → 2021-05-21 08:57 | Outpatient (BNVA) | payer BC, SELFPAY | PROVIDERS: PCP Family Medicine; Visit Provider Podiatrist Foot & Ankle Surgery | DX: Z98.890 Other specified postprocedural states (principal) | CPT/HCPCS: 73630 ==

== ENCOUNTER → 2021-11-10 14:43 | Outpatient (BNVA) | payer BC, SELFPAY | PROVIDERS: PCP Family Medicine; Visit Provider Podiatrist Foot & Ankle Surgery | DX: M79.672 Pain in left foot (principal); M19.072 Primary osteoarthritis, left ankle and foot | CPT/HCPCS: 73630 ==

== ENCOUNTER 2021-11-25 15:45 | Emergency (ER) | payer BC, SELFPAY ==
[2021-11-25 15:55] VITALS: BP 109/73; PULSE 80; RESP 18; TEMP 36.6; O2SAT 98; BMI 27.5
--- NOTE | 2021-11-25 17:00 | W.ED.EXTPRO ---
HPI - Extremity Problem General: Chief complaint: Extremity Problem,Nontraumatic Stated complaint: right knee pain Time Seen by Provider: 11/25/21 16:59 History of Present Illness: 46-year-old female comes in today with complaints of redness and swelling to the right anterior knee. Patient can move knee without difficulty. Patient does have increased pain with weightbearing. Patient appears nontoxic. Patient appears in moderate pain. Associated symptoms: Deny chest pain Review of Systems Const: Reports: chills Card: Denies: chest pain Resp: Denies: dyspnea GI: Denies: nausea or vomiting : Denies: difficulty voiding Musc: Reports: extremity pain and joint swelling Skin/Breast: Reports: erythema PFSH ED PFSH: Medical History Depression Surgical History History of back surgery History of bladder repair surgery History of hysterectomy Family History Mother Cancer Other Diabetes Social History Smoking and tobacco status: former smoker Household members: spouse and children Marital status: Current occupational status: employed History of recent travel: No Financial difficulty paying for basics: Decline to Answer Physical Exam Const: COMMON NORMALS: alert HENMT: COMMON NORMALS: normocephalic HEAD & SCALP: normocephalic Neck/C-Spine: COMMON NORMALS: full ROM Resp: COMMON NORMALS: normal respiratory effort Cardio: COMMON NORMALS: regular rate RATE: regular rate Extremity: RIGHT LOWER EXTREMITY: Yes knee joint (Anterior redness and swelling proximally 5 cm circular) Right knee: Yes inspection, Yes palpation and Yes ROM Neuro: SENSORIUM/ORIENTATION: Yes alert Skin: COMMON NORMALS: turgor normal NARRATIVE SKIN EXAM: Redness to the anterior knee GENERAL SKIN EXAM: turgor normal Course Vital Signs: Vital signs: Vital Signs Temperature 97.9 F 11/25/21 15:55 Pulse Rate 80 11/25/21 15:55 Respiratory Rate 18 11/25/21 15:55 Blood Pressure 109/73 11/25/21 15:55 Pulse Oximetry 98 11/25/21 15:55 MDM - Extremity (Nontraumatic) Medical Decision Making 46-year-old female comes in today with some redness and swelling to the anterior right knee. On exam patient has good joint movement without any crepitus or joint line tenderness. Patient has anterior tenderness and redness approximately 5 cm circular of the patella area. Vital signs are normal. Differential diagnosis includes but not limited to cellulitis, prepatellar bursitis, septic arthritis. No signs of septic arthritis was noted. X-ray of the knee was unremarkable. Believe the patient has a patellar bursitis versus cellulitis. We will cover patient with antibiotic and anti-inflammatories. Patient should follow-up with primary care in 2 to 3 days. Recommended follow-up with orthopedics for further evaluation and treatment as needed. Patient reported understanding and agreed to plan. No signs of serious illness was noted. Lab Data Radiology Impressions Knee X-Ray 11/25/21 17:08 IMPRESSION: No acute findings. Discharge Plan Discharge Patient Disposition: Home Clinical Impression: Prepatellar bursitis of right knee Condition: Stable Prescriptions: New Bactrim DS 800-160 mg tablet 1 tab PO BID 10 Days Qty: 20 0RF hydrocodone-acetaminophen 5-325 mg tablet 1 tab PO Q6H PRN (Reason: pain (scale score 7-10)) Qty: 10 0RF diclofenac sodium 75 mg tablet,delayed release (DR/EC) 75 mg PO BID Qty: 14 0RF Rx Instructions: hold naproxen/meloxicam while using No Action meloxicam 15 mg tablet 15 mg PO DAILY 0RF montelukast 10 mg tablet 10 mg PO DAILY 0RF (DME) Sole Supports See Rx Instructions .Route .MEDSUPPLY Qty: 1 0RF Rx Instructions: As directed naproxen 500 mg tablet 500 mg PO BID 30 Days Qty: 60 3RF estradiol 1 mg tablet 1 mg PO DAILY 0RF Rx Instructions: off 1 week; repeat cycle citalopram 10 mg tablet 10 mg PO DAILY 0RF cholecalciferol (vitamin D3) 125 mcg/mL (5,000 unit/mL) drops 12.5 mcg PO DAILY 0RF ascorbic acid (vitamin C) 1,000 mg tablet extended release 2,000 mg PO Q12H 0RF betamethasone valerate 0.1 % ointment 1 applic topical BID Qty: 45 3RF Rx Instructions: start: to hands/feet x 2 weeks then switch to triamcinolone triamcinolone acetonide 0.1 % ointment 1 applic topical BID Qty: 80 1RF Rx Instructions: to hands/feet x 2 weeks alternating with betamethasone Discharge Orders: Discharge ED (Routine); Ordered 11/25/21 Ordered By: Unruly Day Referrals: Nickolas Mir MD [Primary Care Provider] - Discharge Diet: Usual diet Discharge Activity: Increase activity as tolerated Patient Instructions: Knee Bursitis (ED) Activity Restrictions/Additional Instructions: Home and rest. Elevate leg. Use ice or heat on and off to help with pain and discomfort. Take antibiotics as directed. Case management will contact you regarding follow-up with orthopedics. Return to emergency room for fever greater than 100.4, persistent nausea and vomiting and inability to hold down fluids, or significant redness and swelling. Follow-up with primary care in 3 days for recheck. 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
--- NOTE | 2021-11-25 17:08 | XRR_ITS ---
PROCEDURE INFORMATION: Exam: XR Right Knee Exam date and time: 11/25/2021 5:20 PM Age: 46 years old Clinical indication: Pain; Knee; Right; Additional info: Redness swelling TECHNIQUE: Imaging protocol: XR Right knee. Views: 3 views. COMPARISON: No relevant prior studies available. FINDINGS: Bones/joints: Osseous structures are intact. Negative for fracture. Joint spaces are preserved. Soft tissues: Normal. XR/XR knee RT 3V* [id number] IMPRESSION: No acute findings.
[2021-11-25] MEDS: dexamethasone 10 mg/mL INJ IM (17:44)
[2021-11-25] MEDS: cefTRIAXone 1,000 MG in lidocaine 1% 2.1 ML 1000 MG IM (17:44)
[2021-11-25] MEDS: HYDROcodone-acetaminophen 7.5-325 mg Tablet 1 TAB PO (17:45)
[2021-11-25] MEDS: sulfamethoxazole-trimeth DS 160-800 mg Tablet 1 TAB PO (17:45)
--- NOTE | 2021-11-26 14:37 | DCPLANNER ---
Addendum entered by Sherin Jasso 12/05/21 06:57: Patient had a follow up appointment with ortho - patient did attend appointment. Original Note: onsite case manager had message to schedule a follow up appointment for patient with ortho. onsite case manager sent patients information to the front office staff at ortho. Patients information will be printed and reviewed. Clinic will call patient with appointment information.
== END 2021-11-25 18:02 | disposition home or self-care (01) ==
PROVIDERS: Emergency Provider Nurse Practitioner Family; PCP Family Medicine
DX: M70.41 Prepatellar bursitis, right knee (principal)
CPT/HCPCS: 73562; 96372; 99283; J0696; J1100

== ENCOUNTER 2021-12-17 12:20 | Outpatient (CLI) | payer BC, SELFPAY ==
--- NOTE | 2021-12-17 12:49 | MM_ITS ---
WS: [email or web address] BILATERAL 3D TOMOSYNTHESIS DIGITAL SCREENING MAMMOGRAPHY WITH CAD CLINICAL INFORMATION: SCREEN HISTORY: Screening mammogram. No current complaints. COMPARISON: November 20, 2020 TECHNIQUE: Bilateral CC and MLO views. FINDINGS: The breasts are composed of heterogeneous fibroglandular density tissue, which can limit the detectio n of small underlying mass lesions. Stable ovoid nodules bilaterally previously demonstrated to repre sent benign cyst or previously biopsied fibroadenoma. No suspicious mass, asymmetry, calcifications, or architectural distortion. No evidence of malignancy. MM/[place] [id number] IMPRESSION: BI-RADS: 2-Benign FOLLOW UP: 1 Year Follow-up Recommend return to annual screening mammography.
== END 2021-12-17 12:21 | disposition home or self-care (01) ==
LOC: RAD 12:21
PROVIDERS: PCP Family Medicine; Visit Provider Family Medicine
DX: Z12.31 Encounter for screening mammogram for malignant neoplasm of breast (principal)
CPT/HCPCS: 77063; 77067

== ENCOUNTER 2022-08-28 08:20 | Outpatient (CLI) | payer BC, SELFPAY ==
--- NOTE | 2022-08-28 08:31 | CT_ITS ---
WS: [email or web address] CT HEAD NONCONTRAST HISTORY: RECURRENT FALLS TECHNIQUE: Contiguous axial imaging performed through the brain in 2.5 mm imaging. Bone and soft tiss ue windows. Sagittal and coronal reformats reviewed. All CT scans at [facility] use at least one of these dose optimization techniques: automated exposure control; mA and/or kV adjustment per pa tient size (includes targeted exams where dose is matched to clinical indication); or iterative recon struction. DLP: 1073.78 mGy.cm COMPARISON: None available. No acute intracranial hemorrhage, midline shift or mass effect. No significant atrophy. Low-attenuation nodule RIGHT temporal lobe measures 6 mm. Closely associated with the MCA. Smaller similar finding on the LEFT. Ventricles: Normal size with no hydrocephalus. No inferior displacement of cerebellar tonsils. Paranasal sinuses: As visualized are clear. Mastoid air cells: Well pneumatized. Calvarium and scalp: Skull is intact with no soft tissue edema or swelling. There are a few small radha cific densities within the very superficial soft tissues over the frontal bone. Very nonspecific. CT/CT head wo con* [id number] IMPRESSION: 1. No acute intracranial hemorrhage or edema. 2. 6 mm low-attenuation lesion in the RIGHT temporal lobe. Similar but much sm aller lesion on the LEFT. These may be small lacunar infarcts or abnormal sylvi an fissures. Due to their position near the middle cerebral arteries evaluation for possible aneurysm should be obtained. Consider follow-up CT angiogram cere bral arteries or MRI brain with contrast and MR cerebral angiogram.
== END 2022-08-28 08:21 | disposition home or self-care (01) ==
PROVIDERS: PCP Electrodiagnostic Medicine; Visit Provider Electrodiagnostic Medicine
DX: R29.6 Repeated falls (principal); G93.89 Other specified disorders of brain
CPT/HCPCS: 70450

== ENCOUNTER 2022-12-30 07:43 | Outpatient (CLI) | payer BC, SELFPAY ==
--- NOTE | 2022-12-30 07:50 | CT_ITS ---
WS: [email or web address] CT ABDOMEN PELVIS TECHNIQUE: Contrast-enhanced CT of the abdomen and pelvis with coronal and sagittal reformatted image s. CLINICAL INFORMATION: ABDOMINAL PAIN COMPARISON: CT 2018 DLP: 382.[address] scans at [facility] use at least one of these dose optimization techniques: automated e xposure control; mA and/or kV adjustment per patient size (includes targeted exams where dose is matc hed to clinical indication); or iterative reconstruction. FINDINGS: Prior hysterectomy. Mild diffuse fatty infiltration liver. Small RIGHT hepatic cyst measuring 10 mm. Normal portal vein and splenic vein. Normal spleen. Small esophageal hiatal hernia. Lung bases are we ll aerated. Normal pancreatic parenchymal enhancement. Normal caliber abdominal aorta. Celiac and SMA are patent. Normal renal parenchymal enhancement. No hydronephrosis. Normal adrenal glands. No obstr ucting renal or ureteral calculi. Normal sigmoid colon. Normal appendix in the RIGHT lower quadrant. No evidence of acute appendicitis. Small fat-containing umbilical hernia. Prior postoperative changes anterior plate and screw fixation L4-L5 with interbody fusion. CT/CT abdomen pelvis w con* [id number] IMPRESSION: 1. No hydronephrosis in either kidney. No obstructing renal or ureteral calcul i. 2. Normal appendix in the RIGHT lower quadrant. 3. Small esophageal hiatal hernia. 4. A few sigmoid diverticuli. No evidence of acute diverticulitis. 5. Prior hysterectomy. 6. Small fat-containing umbilical hernia. 7. No other suspicious findings.
[2022-12-30] MEDS: iohexol 350 mg/mL 500 mL Btl (per mL) IV (08:36)
== END 2022-12-30 07:44 | disposition home or self-care (01) ==
PROVIDERS: PCP Electrodiagnostic Medicine; Visit Provider Electrodiagnostic Medicine
DX: K44.9 Diaphragmatic hernia without obstruction or gangrene (principal); K42.9 Umbilical hernia without obstruction or gangrene; Z90.710 Acquired absence of both cervix and uterus
CPT/HCPCS: 74177; Q9967

== ENCOUNTER 2023-01-07 09:11 | Outpatient (CLI) | payer BC, SELFPAY ==
--- NOTE | 2023-01-07 09:31 | MM_ITS ---
WS: [email or web address] BILATERAL 3D TOMOSYNTHESIS DIGITAL SCREENING MAMMOGRAPHY WITH CAD CLINICAL INFORMATION: SCREENING HISTORY: Screening mammogram. No current complaints. COMPARISON: December 17, 2021 TECHNIQUE: Bilateral CC and MLO views. FINDINGS: The breasts are composed of heterogeneous fibroglandular density tissue, which can limit the detectio n of small underlying mass lesions. Stable ovoid nodules bilaterally previously demonstrated to represent benign cysts or previously biopsied fibroadenoma. Stable calcifications LEFT breast. No suspicious mass, asymmetry, calcifications, or architectural distortion. No evidence of malignancy. MM/[place] [id number] IMPRESSION: BI-RADS: 2-Benign FOLLOW UP: 1 Year Follow-up Recommend return to annual screening mammography.
== END 2023-01-07 09:12 | disposition home or self-care (01) ==
PROVIDERS: PCP Electrodiagnostic Medicine; Visit Provider Electrodiagnostic Medicine
DX: Z12.31 Encounter for screening mammogram for malignant neoplasm of breast (principal)
CPT/HCPCS: 77063; 77067

== ENCOUNTER 2023-01-12 09:41 | Outpatient (CLI) | payer BC, SELFPAY ==
--- NOTE | 2023-01-12 09:47 | NM_ITS ---
WS: [email or web address] NUCLEAR MEDICINE HIDA SCAN CLINICAL INFORMATION: BILIARY COLIC TECHNIQUE: Following intravenous administration of 7.8 mCi of technetium 99m mebrofenin, images of th e abdomen were obtained over the course of 60 minutes. Next, gallbladder ejection fraction was determ ined by obtaining preprandial and one-hour postprandial images of the gallbladder following oral ajswinder stion of Ensure. COMPARISON: None. FINDINGS: Mild hepatomegaly. Normal hepatic uptake. Normal hepatic excretion. Normal common bile duct and small bowel activity. Gallbladder is visualized by 15 minutes. No evidence of acute cholecystitis. Gallbladder ejection fraction 63% within normal limits. No evidence of chronic cholecystitis. NM/NM hepatobiliary w phar* [id number] IMPRESSION: 1. No evidence of acute or chronic cholecystitis. 2. Gallbladder ejection fraction 63% within normal limits.
== END 2023-01-12 09:42 | disposition home or self-care (01) ==
LOC: RAD 09:42
PROVIDERS: PCP Electrodiagnostic Medicine; Visit Provider Electrodiagnostic Medicine
DX: K80.50 Calculus of bile duct without cholangitis or cholecystitis without obstruction (principal)
CPT/HCPCS: 78227; A9537

== ENCOUNTER → 2023-02-04 11:45 | Outpatient (BNVA) | payer BC, SELFPAY | PROVIDERS: PCP Electrodiagnostic Medicine; Visit Provider Family Medicine | DX: R79.82 Elevated C-reactive protein (CRP) (principal) | CPT/HCPCS: 86038; 86431 ==

== ENCOUNTER 2023-03-04 06:45 | Outpatient (CLI) | payer BC, SELFPAY ==
--- NOTE | 2023-03-04 06:54 | CT_ITS ---
WS: [email or web address] CT chest w con* [id number] HISTORY: R07.89 - Other chest pain TECHNIQUE: Axial imaging performed through the thorax. Coronal and sagittal reformats are submitted. All CT scans at [facility] use at least one of these dose optimization techniques: automated exposure control; mA and/or kV adjustment per patient size (includes targeted exams where dose is mat ched to clinical indication); or iterative reconstruction. CONTRAST: Omnipaque 350; 100 mL IV. DLP: 251.77 mGy.cm COMPARISON: None available. Lungs and central airway: Normal. Pleura: Normal. No pleural effusion. Heart and pericardium: Normal size heart with no pericardial effusion. Mediastinum and esa: No mediastinum or hilar adenopathy. Vessels: Normal size aortic and pulmonary artery. No coronary artery calcifications. Chest wall and lower neck: There is a soft tissue mass with calcification in the LEFT breast. Prior m ammograms have demonstrated this mass with calcification. Upper abdomen: 10 mm cyst superior RIGHT lobe of the liver. No interval change. Osseous structures: No destructive process. IMPRESSION: 1. No pulmonary mass, pneumonia or nodule. 2. No mediastinal or hilar adenopathy. 3. No rib lesions or fractures.
[2023-03-04] MEDS: iohexol 350 mg/mL 500 mL Btl (per mL) IV (07:07)
== END 2023-03-04 06:46 | disposition home or self-care (01) ==
PROVIDERS: PCP Family Medicine; Visit Provider Family Medicine
DX: R07.89 Other chest pain (principal)
CPT/HCPCS: 71260; Q9967

== ENCOUNTER 2023-08-06 08:23 | Outpatient (CLI) | payer BC, SELFPAY ==
--- NOTE | 2023-08-06 08:31 | MR_ITS ---
WS: [email or web address] MRI THORACIC SPINE noncontrast. HISTORY: DDD,THORACIC COMPARISON: None available. TECHNIQUE: Multiplanar sequences are performed in sagittal and axial planes. Very mild straightening of the normal thoracic kyphosis. T1-2: Normal. T2-3: Normal. T3-4: Normal. T4-5: Normal. T5-6: Very tiny LEFT paracentral disc protrusion. No stenosis. T6-7: Normal. T7-8: Normal. T8-9: Normal. T9-10: Bilateral facet joint arthritis. T10-11: Moderate bilateral facet joint arthritis with mild encroachment upon the foramina. No high-gr froy stenosis. T11-12: Normal. Hepatic cysts 11 mm RIGHT lobe. IMPRESSION: 1. No high-grade central or foraminal stenosis or disc protrusions. 2. Facet joint arthritis in the lower thoracic spine, most significant at T10-11. 3. No significant disc protrusions with cord contact.
== END 2023-08-06 08:24 | disposition home or self-care (01) ==
LOC: RAD 08:26
PROVIDERS: PCP Family Medicine; Visit Provider General Practice
DX: M51.34 Other intervertebral disc degeneration, thoracic region (principal); M47.894 Other spondylosis, thoracic region
CPT/HCPCS: 72146

== ENCOUNTER 2023-11-29 13:56 | Outpatient (CLI) | payer BC, SELFPAY ==
--- NOTE | 2023-11-29 14:30 | MM_ITS ---
WS: [email or web address] ADDITIONAL VIEWS RIGHT MAMMOGRAM WITH DIGITAL BREAST TOMOSYNTHESIS. RIGHT BREAST ULTRASOUND HISTORY: N63.10 - Unspecified lump in the right breast, unspecifie... COMPARISON: 01/07/2023, 12/17/2021 RIGHT MAMMOGRAM: Spot compression views and true ML with digital breast tomosynthesis and SM. Dense fibroglandular tissue. There is a partially obscured mass measuring 1.5 x 1.8 cm in the upper o uter quadrant of the RIGHT breast near 10:00. Margins as visualized are well-circumscribed. No calcif ication or distortion. RIGHT BREAST ULTRASOUND 2-D and color Doppler imaging submitted. Palpable area in the RIGHT breast corresponds to a large simple cyst measuring 1.8 x 1.7 x 1.7 cm. Th ere is good through transmission. No solid component. MM/[place] [id number] IMPRESSION: BI-RADS: 2-Benign FOLLOW UP: See Report Simple cyst RIGHT breast. Corresponds to the palpable abnormality. Return to an nual screening mammography.
--- NOTE | 2023-11-29 15:00 | US_ITS ---
WS: [email or web address] ADDITIONAL VIEWS RIGHT MAMMOGRAM WITH DIGITAL BREAST TOMOSYNTHESIS. RIGHT BREAST ULTRASOUND HISTORY: N63.10 - Unspecified lump in the right breast, unspecifie... COMPARISON: 01/07/2023, 12/17/2021 RIGHT MAMMOGRAM: Spot compression views and true ML with digital breast tomosynthesis and SM. Dense fibroglandular tissue. There is a partially obscured mass measuring 1.5 x 1.8 cm in the upper o uter quadrant of the RIGHT breast near 10:00. Margins as visualized are well-circumscribed. No calcif ication or distortion. RIGHT BREAST ULTRASOUND 2-D and color Doppler imaging submitted. Palpable area in the RIGHT breast corresponds to a large simple cyst measuring 1.8 x 1.7 x 1.7 cm. Th ere is good through transmission. No solid component. US/US breast RT limited* [id number] IMPRESSION: BI-RADS: 2-Benign FOLLOW UP: See Report Simple cyst RIGHT breast. Corresponds to the palpable abnormality. Return to an nual screening mammography.
== END 2023-11-29 13:57 | disposition home or self-care (01) ==
LOC: RAD 13:56
PROVIDERS: PCP Family Medicine; Visit Provider Family Medicine
DX: N63.11 Unspecified lump in the right breast, upper outer quadrant (principal); Z12.31 Encounter for screening mammogram for malignant neoplasm of breast; R92.321 Mammographic fibroglandular density, right breast; N60.01 Solitary cyst of right breast
CPT/HCPCS: 76642; 77061; G0279

== ENCOUNTER 2024-04-24 08:19 | Outpatient (RCR) | payer BC, SELFPAY | END 2024-04-27 23:59 | disposition home or self-care (01) | LOC: SPT 08:19 | PROVIDERS: Visit Provider General Practice | DX: G89.4 Chronic pain syndrome (principal) | CPT/HCPCS: 97110; 97162 ==

== ENCOUNTER → 2024-08-22 12:56 | Outpatient (BNVA) | payer BC, SELFPAY | PROVIDERS: Visit Provider Nurse Practitioner Family | DX: E78.5 Hyperlipidemia, unspecified (principal) | CPT/HCPCS: 80053; 80061; 85025 ==

== ENCOUNTER → 2024-09-19 12:53 | Outpatient (BNVA) | payer BC, SELFPAY | PROVIDERS: Visit Provider Podiatrist Foot & Ankle Surgery | DX: M20.22 Hallux rigidus, left foot (principal); M79.672 Pain in left foot | CPT/HCPCS: 73630 ==

== ENCOUNTER 2024-10-06 07:10 | Day surgery (SDC) | payer BC, SELFPAY ==
[2024-10-06] VITALS (7 sets, daily range): BP systolic 94–121; BP diastolic 58–74; PULSE 75–85; RESP 16–18; TEMP 36.4–36.9; O2SAT 97–100; BMI 25.8
--- NOTE | 2024-10-06 | XR_ITS ---
WS: [email or web address] C-ARM RADIOGRAPHS LEFT FOOT; 1 IMAGES HISTORY: Hardware removal and first metatarsal joint fusion left foot COMPARISON: 09/19/2024 Single images submitted which demonstrates plate and screw fixation at the first metatarsophalangeal joint. XR/XR foot LT 2V [id number] IMPRESSION: Intraoperative imaging during LEFT foot surgery. There is a plate and screw fix ation at the first metatarsophalangeal joint.
[2024-10-06] MEDS: sodium chloride 0.9% 1,000 ML 30 ML IV (07:35)
[2024-10-06] MEDS: gabapentin 300 mg Capsule PO (07:37)
[2024-10-06] MEDS: scopolamine 1 mg PATCH 1 PATCH TRANSDERMA (07:37)
[2024-10-06] MEDS: CELEcoxib 200 mg Capsule 400 MG PO (07:37)
--- NOTE | 2024-10-06 07:51 | ANES.PREANE2 ---
Pre-Anesthetic Assessment Height/Weight: Height 1.7 m Weight 74.843 kg Temp Pulse Resp BP Pulse Ox O2 Del Method 98.3 F 77 18 121/74 98 Room Air 10/06/24 07:30 10/06/24 07:30 10/06/24 07:30 10/06/24 07:30 10/06/24 07:30 10/06/24 07:30 Preop Diagnosis: Left hallux rigidus Operation Date: 10/06/24 08:45 Proposed Procedures p Hardware Removal left foot(Left) - Ras Benson DPM s Arthrodesis Foot Metatarsophalangeal Joint Arthrodesis(Left) - Ras Benson DPM Last intake: Intake Last Liquid Date 10/05/24 Last Liquid Time 19:00 Last Solid Date 10/05/24 Last Solid Time 20:00 Social No alcohol and No tobacco Exam alert, oriented x 3 and clear to auscultation bilaterally (Normal cardiac ) Airway Submandibular: within normal limits Cervical ROM: within normal limits Mallampati: Class I GI Gastroesophageal Reflux Disease (well controlled ) Metabolic Hyperlipidemia Anesthetic Plan ASA status: 2 Anesthesia: General Medications/Allergies Home Medications ?Medication ?Instructions ?Recorded ?Confirmed ?Last Taken ?Type triamcinolone acetonide 0.1 % 1 applic topical BID #80 grams 09/18/21 10/05/24 Unknown Rx topical ointment Sole Supports #1 ea 11/10/21 09/19/24 Unknown Rx thyroid (pork) 60 mg tablet (NURSING SUPPORT WORKER 60 mg PO DAILY #30 tabs 02/04/23 10/05/24 10/05/24 Rx Thyroid) progesterone micronized 200 mg 400 mg (2 x 200 mg) PO .HS #30 caps 07/21/23 10/05/24 10/05/24 Rx capsule ascorbic acid (vitamin C) 1,000 mg 1 g PO Q6H 08/22/24 10/05/24 10/05/24 History capsule ashwagandha root extract 500 mg 500 mg PO BEDTIME 08/22/24 10/05/24 10/05/24 History capsule citalopram 10 mg tablet 10 mg PO DAILY #90 tabs 08/22/24 10/05/24 10/05/24 Rx estradiol 25 mg implant pellet See Rx Instructions .Route .COMPLEX 08/22/24 10/05/24 10/05/24 History magnesium 250 mg tablet 500 mg PO DAILY 08/22/24 10/05/24 10/05/24 History pantoprazole 40 mg tablet,delayed 40 mg PO DAILY #90 tabs 08/22/24 10/05/24 10/05/24 Rx release sumatriptan succinate 100 mg tablet See Rx Instructions PO .COMPLEX 08/22/24 10/05/24 Unknown Rx #14 tabs testosterone 100 mg implant pellet See Rx Instructions .Route .COMPLEX 08/22/24 10/05/24 10/05/24 History levalbuterol tartrate 45 2 inh inhalation Q6H #15 grams 10/02/24 10/05/24 Unknown Rx mcg/actuation aerosol inhaler Allergies Allergy/AdvReac Type Severity Reaction Status Date / Time amoxicillin (From Augmentin) Allergy Severe ALGY-Rash Verified 10/06/24 07:23 clavulanic acid (From Allergy Severe ALGY-Rash Verified 10/06/24 07:23 Augmentin) Current Medications Generic Name Dose Route Start Last Admin Trade Name Freq PRN Reason Stop Dose Admin Sodium Chloride 1,000 mls @ 30 mls/hr 10/06/24 07:30 10/06/24 07:35 Sodium Chloride 0.9% IV 10/07/24 07:29 30 mls/hr .Q24H MARY Administration PFSH Anesthesia Medical History Depression Surgical History History of back surgery History of hysterectomy History of bladder repair surgery Family History Mother Cancer Other Diabetes Social History Smoking and tobacco/nicotine status: never used tobacco/nicotine Second hand smoke exposure: No Alcohol intake: current Alcohol intake frequency: holidays/special occasions only Alcohol type: beer Substance/Drug Use: never Lives independently: Yes Household members: spouse and children Marital status: service: No Current occupational status: employed Current gender identity: Female Special francis needs: No Agree to transfusion: Yes Data Anesthesia Cardiac Studies: No Data to Display
--- NOTE | 2024-10-06 08:46 | W.PM.OPSUD ---
Surgery/Procedure H&P Update DATE OF PROCEDURE: October 06, 2024 DATE H&P PERFORMED: 09/19/24 H&P UPDATE INFORMATION: I have reviewed H&P completed within last 30 days, I have examined patient prior to procedure, No changes to prior documentation and Risks and benefits of the procedure reviewed PREOP DIAGNOSIS: Left hallux rigidus PLANNED PROCEDURE: Operation Date: 10/06/24 08:45 Proposed Procedures p Hardware Removal left foot(Left) - Ras Benson DPM s Arthrodesis Foot Metatarsophalangeal Joint Arthrodesis(Left) - Ras Benson DPM
--- NOTE | 2024-10-06 09:17 | P.BOP_ITS ---
Date of Procedure: 09/10/23 Surgeon: Ras Benson DPM [employer] Advisor(s): Diana Galeana Procedure(s) performed: Hardware removal and first metatarsal joint fusion left foot. Findings of the procedure(s): Arthrosis of the left first metatarsophalangeal joint Estimated blood loss: 2 mL Specimen(s) removed: None Post-operative diagnosis: Left hallux rigidus
[2024-10-06] MEDS: clindamycin 600 MG/50 ML PREMIX 100 MG IV (09:20)
[2024-10-06] MEDS: tranexamic acid 1,000 mg/10mL SDV 1000 MG IV (09:31)
[2024-10-06] MEDS: BUPivacaine 0.5% INJ 10 mL 20 ML INJECTION (09:43)
[2024-10-06] MEDS: BUPivacaine liposome 13.3 mg/mL SDV 20 mL 266 MG INJECTION (09:43)
--- NOTE | 2024-10-06 10:22 | P.OP_ITS ---
Operative Report Date of procedure: October 06, 2024 Pre-op diagnosis: Hallux rigidus of left foot M20.22 Painful hardware T84.84 Post-op diagnosis: Hallux rigidus of left foot M20.22 Painful hardware T84.84 Procedure done: 1) hardware removal left foot. CPT code 81910 2) left first metatarsophalangeal joint fusion. CPT code 57418 Implants: First MTP plate 0 degree. 2.7 millimeter screws distally 3.5 millimeter screws proximally, DBM, 0 Vicryl, 4-0 Vicryl, 4-0 nylon Specimens removed/disposition: None Pathology: None Surgeon: Ras Benson DPM Septic Tank Cleaner: Diana Galeana Estimated blood loss: 2 41 IV fluids: See intraoperative documentation Urine output: No urine output Complications: No complications encountered Brief History: Imaging left foot 3 views taken in clinic weightbearing confirmation of [id number] contact and formation of bone spurs in the left great toe. Subchondral sclerosis at both sides of the first metatarsophalangeal joint left foot, joint space loss with largely [id number] with erosive changes consistent with osteoarthritis left first metatarsal phalangeal joint, dorsal osteophytes both at the base of the dorsal proximal phalanx and head of the first metatarsal left foot. 49-year-old female with history of hallux rigidus presenting with severe degeneration of the left great toe joint. The arthritis has led to cartilage loss and bone spurs, causing significant pain and mobility issues, which have not been resolved by previous implant surgery. A fusion procedure is recommended to achieve long-lasting pain relief and functional stability. 1. Degenerative Joint Disease Of The Great Toe Given the degenerative nature of the great toe joint and prior treatment failure, this plan emphasizes supportive footwear to reduce stress. Surgical fusion offers the best chance for enduring relief. While medicinal interventions were discussed, surgery provides the most definitive solution for pain and dysfunction, with a high success rate intermediate project manager. 2. Hallux Rigidus Surgical fusion is recommended due to the severity of hallux rigidus. This plan aims to permanently relieve pain with titanium hardware for stability. The recovery involves a structured process of non-weightbearing followed by gradual return to activity. The patient is informed of expected outcomes and modifications in footwear use post-fusion. - Limit activities that exacerbate toe pain. - Consider scheduling surgery for left great toe fusion based on personal ability to manage caregiving responsibilities. - Wear supportive footwear to reduce toe stress. - Understand surgery involves a period of non-weightbearing, followed by gradual increase in activity. - Monitor symptoms and plan for surgical intervention when pain consistently affects daily life. The patient, a 49-year-old female, presents with severe hallux rigidus compo unded by complete cartilage loss and [id number] contact in the left great toe, causing significant limitations. Previous joint implant failed, necessitating reconsideration of surgical strategy. Fusion is prioritized, given its predictability, durability, and high patient satisfaction rate, versus the wear- prone joint replacements for her active lifestyle. The decision also represents the optimal balance of surgical risk, recovery, and return to function with a permanent solution to her symptomatic degenerative joint disease. The treatment timeline is structured around her caregiving duties to ensure optimal post- operative compliance and care outcome. Procedure: Under mild sedation the patient was brought to the operating room and remained on the gurney in supine position. A timeout was performed. Anesthesia was then administered by the anesthesia service. Local anesthesia was injected by myself consisting of 20 cc of 0.5% Marcaine plain in a left Ling block fashion with an additional 20 cc of Exparel infiltrated subcutaneously in a grid like fashion per cafe cook's technique of the left medial forefoot. A well-padded pneuma tic tourniquet was applied to the left ankle and the left lower extremity was then scrubbed, prepped and draped utilizing normal aseptic technique. The left lower extremity was exanguinated with an Esmarch bandage and tourniquet was then inflated to 250 mmHg. Attention was directed to the left first metatarsal phalangeal joint was noted to have osseous and range of motion and significant decrease in dorsiflexion approximately 20 degrees of dorsiflexion was achieved with range of motion intraoperatively with osseous end range of motion. A incision was planned and carried out with a #15 blade linear longitudinal and fashion through skin with a #15 blade medial to the extensor hallucis longus tendon at the left first metatarsal phalangeal joint and a dorsal medial aspect, dissection was carried down through subcutaneous tissue to the layer of periosteum and joint capsule utilizing a combination of sharp and blunt technique. Care was taken to retract and preserve neurovascular and tendinous structures. All bleeders were ligated and cauterized as necessary. Incision Was Performed in the Head of the First Metatarsal and Base of the Proximal Phalanx Were Freed from Their Soft Tissue and Capsular Attachments. The First Metatarsal Head Was Visualized and Noted to Have Significant Eburnation, Cartilage Loss, Osteochondral Defect and Subsidence of the Cartee the Implant. Attention Was Directed to the Hardware within the First Metatarsal Head and This Was Explanted Out Of Bone in Total without Fragmentation or Failure This Was Passed from the Operative Field and Will Be Sent As Waste. The Incision Was Irrigated with Copious Amounts of Sterile Saline Solution. The Head of the First Metatarsal and Base of the Proximal Phalanx Were Denuded of Remaining Cartilage down to Subchondral Bone Utilizing Cone Reamers Followed by Saline Flush and Subchondral Drilling with a Fenestrating Drill Bit at Both Surfaces to Be Fused, the First Metatarsal Phalangeal Joint Was Held in Slight Dorsiflexion Approximately 15 Degrees of Dorsiflexion, neutral in the frontal plane and slight valgus and fixated utilizing a dorsal locking plate with 2.7 millimeter screws distal x 3 and 3.5 millimeter screws proximal x 3 with excellent bony apposition and compression noted, bone voids were packed with demineralized bone matrix. Confirmation of hardware placement and positioning of the arthrodesis site was noted to be excellent in all 3 planes with AP, oblique and lateral view with intraoperative mini C arm. The incision was irrigated with saline solution and closed in a layered fashion with capsular structure reapproximated with 3-0 Vicryl subcutaneous tissue with 4-0 Vicryl and skin with 4-0 nylon. The incision was dressed with Xeroform, 4 x 4 gauze, Kerlix followed by Anthony wrap and application of a cam boot to the left lower extremity. Tourniquet was deflated and a prompt hyperemic response is noted to the distal digits of the left foot. Patient tolerated the procedure and anesthesia well and was transferred to the PACU with vital signs stable and vascular status intact. Following a period of postoperative monitoring she will be discharged home without home care instru ctions and scheduled follow-up. She was also provided myself number to contact with any postoperative questions or concerns.
--- NOTE | 2024-10-06 11:37 | ANE.PACU2 ---
Inpatient post-anesthesia follow up: Vital signs: Temperature 97.5 F Pulse Rate 75 Respiratory Rate 16 Blood Pressure 102/58 Pulse Oximetry 100 Oxygen Delivery Me thod Room Air Oxygen Flow Rate Fraction of Inspir ed Oxygen Hydration adequate: Yes Nausea and vomiting: No Pain level: 3 Mental status: Baseline
== END 2024-10-06 11:11 | disposition home or self-care (01) ==
PROVIDERS: PCP Podiatrist Foot & Ankle Surgery; Visit Provider Podiatrist Foot & Ankle Surgery
PROC: (CPT 28750; principal; 2024-10-06 08:35)
PROC: (CPT 28740; 2024-10-06 08:35)
DX: M20.22 Hallux rigidus, left foot (principal); T84.84XA Pain due to internal orthopedic prosthetic devices, implants and grafts, initial encounter; M19.072 Primary osteoarthritis, left ankle and foot; K21.9 Gastro-esophageal reflux disease without esophagitis; E78.5 Hyperlipidemia, unspecified; Z79.899 Other long term (current) drug therapy; Z88.0 Allergy status to penicillin; Z88.8 Allergy status to other drugs, medicaments and biological substances; Y79.3 Surgical instruments, materials and orthopedic devices (including sutures) associated with adverse incidents; Z79.890 Hormone replacement therapy
CPT/HCPCS: 28750; 20680; 73620; 76000; C1713; C1763; C9359; J0666; J1100; J1885; J2250; J2405; J2704; J3010; J3490; J7030; J9999

== ENCOUNTER → 2024-10-13 14:29 | Outpatient (BNVA) | payer BC, SELFPAY | PROVIDERS: PCP Podiatrist Foot & Ankle Surgery; Visit Provider Podiatrist Foot & Ankle Surgery | DX: M79.672 Pain in left foot (principal); Z98.890 Other specified postprocedural states | CPT/HCPCS: 73630 ==

== ENCOUNTER → 2024-10-19 14:14 | Outpatient (BNVA) | payer BC, SELFPAY | PROVIDERS: PCP Nurse Practitioner Family; Visit Provider Podiatrist Foot & Ankle Surgery | DX: M20.22 Hallux rigidus, left foot (principal); Z98.1 Arthrodesis status | CPT/HCPCS: 73630 ==

== ENCOUNTER → 2024-11-16 14:38 | Outpatient (BNVA) | payer BC, SELFPAY | PROVIDERS: PCP Nurse Practitioner Family; Visit Provider Podiatrist Foot & Ankle Surgery | DX: Z98.890 Other specified postprocedural states (principal); M79.672 Pain in left foot; M20.22 Hallux rigidus, left foot | CPT/HCPCS: 73630 ==

== ENCOUNTER → 2024-11-30 14:16 | Outpatient (BNVA) | payer BC, SELFPAY | PROVIDERS: PCP Nurse Practitioner Family; Visit Provider Podiatrist Foot & Ankle Surgery | DX: Z98.890 Other specified postprocedural states (principal) | CPT/HCPCS: 73630 ==

== ENCOUNTER → 2024-12-11 10:49 | Outpatient (BNVA) | payer BC, SELFPAY | PROVIDERS: PCP Nurse Practitioner Family; Visit Provider Nurse Practitioner Family | DX: Z98.890 Other specified postprocedural states (principal) | CPT/HCPCS: 81003; 87077; 87086; 87184 ==

== ENCOUNTER → 2024-12-28 12:42 | Outpatient (BNVA) | payer BC, SELFPAY | PROVIDERS: PCP Nurse Practitioner Family; Visit Provider Podiatrist Foot & Ankle Surgery | DX: Z98.890 Other specified postprocedural states (principal) | CPT/HCPCS: 73630 ==

== ENCOUNTER → 2025-03-13 08:40 | Outpatient (BNVA) | payer BC, SELFPAY | PROVIDERS: PCP Nurse Practitioner Family; Visit Provider Nurse Practitioner Family | DX: M25.512 Pain in left shoulder (principal) | CPT/HCPCS: 73030 ==

== ENCOUNTER 2025-04-03 08:34 | Outpatient (CLI) | payer BC, SELFPAY ==
--- NOTE | 2025-04-03 08:36 | FL_ITS ---
WS: [id number] Barium swallow and esophagram, 04/03/2025 Clinical Data: HIATAL HERNIA WITH GERD Comparison: None. Fluoroscopy time: 1min [id number] # of spot films: 50 Findings: The patient swallowed the thick and thin barium, and it flowed through the hypopharynx without hesitation. No aspiration or penetration occurred. No stricture, mass, polyp or erosion was seen. The barium entered the esophagus and there was normal motility throughout. No hiatal hernia, reflux, stricture, polyp, mass, erosion or ulcer was noted. The barium passed normally into the stomach. FL/FL barium swallow [id number] Impression: Normal esophagram.
== END 2025-04-03 08:35 | disposition home or self-care (01) ==
LOC: RAD 08:34
PROVIDERS: PCP Nurse Practitioner Family; Visit Provider Surgery
DX: K44.9 Diaphragmatic hernia without obstruction or gangrene (principal); K21.9 Gastro-esophageal reflux disease without esophagitis
CPT/HCPCS: 74220

== ENCOUNTER 2025-04-04 08:45 | Outpatient (CLI) | payer BC, SELFPAY ==
--- NOTE | 2025-04-04 08:45 | MR_ITS ---
WS: [id number] MRI LEFT SHOULDER HISTORY: M25.512 - Pain in left shoulder COMPARISON: Radiograph 03/13/2025 TECHNIQUE: Multiplanar sequences of the shoulder joint are submitted. Moderate AC joint arthritis. Synovial thickening with increased signal surrounding the AC joint. Small erosions noted from the distal clavicle and the adjacent acromion. Mild osteophytosis with encroachment upon the myotendinous portion of the supraspinatus. Small amount of fluid in the subacromial and subdeltoid bursa. Mild subacromial impingement upon the supraspinatus tendon. No os acromion. Normal position of the biceps tendon. Humerus is normal seated at the glenoid. No fractures or marrow edema. No muscle atrophy or edema. Very mild tendinopathy in the distal supraspinatus tendon. No tendon tears. No thickening of the joint capsule or axillary pouch. No labral tear. MR/MR shoulder LT wo con* [id number] IMPRESSION: 1. Moderate AC joint arthritis with synovitis. 2. No rotator cuff tendon tear. 3. Mild tendinopathy in the distal supraspinatus. 4. Mild subacromial impingement.
== END 2025-04-04 08:46 | disposition home or self-care (01) ==
LOC: RAD 08:45
PROVIDERS: PCP Nurse Practitioner Family; Visit Provider Nurse Practitioner Family
DX: M19.012 Primary osteoarthritis, left shoulder (principal); M65.912 Unspecified synovitis and tenosynovitis, left shoulder; M25.812 Other specified joint disorders, left shoulder
CPT/HCPCS: 73221

== ENCOUNTER 2025-04-05 10:48 | Day surgery (SDC) | payer BC, SELFPAY ==
[2025-04-05 11:09] VITALS: BP 115/75; PULSE 70; RESP 18; TEMP 36.1; O2SAT 100; BMI 25.9
--- NOTE | 2025-04-05 11:36 | W.PM.OPSUD ---
Surgery/Procedure H&P Update DATE OF PROCEDURE: April 05, 2025 DATE H&P PERFORMED: 04/02/25 H&P UPDATE INFORMATION: I have reviewed H&P completed within last 30 days, I have examined patient prior to procedure, No changes to prior documentation and Risks and benefits of the procedure reviewed PLANNED PROCEDURE: Operation Date: 04/05/25 12:30 Proposed Procedures p EGD EGD with Biopsy [id number] K21.9(Not Applicable) - Tan Atwood MD
--- NOTE | 2025-04-05 11:49 | ANES.PREANE2 ---
Pre-Anesthetic Assessment Height/Weight: Height 5 ft 7 in Weight 166 lb Temp Pulse Resp BP Pulse Ox O2 Del Method 97 F L 70 18 115/75 100 Room Air 04/05/25 11:09 04/05/25 11:09 04/05/25 11:09 04/05/25 11:09 04/05/25 11:09 04/05/25 11:09 Preop Diagnosis: Dysphagia Operation Date: 04/05/25 12:30 Proposed Procedures p EGD EGD with Biopsy [id number] K21.9(Not Applicable) - Tan Atwood MD Was Beta Saul taken within 24 hours: N/A Was Clonidine taken within 24 hours: N/A Last intake: Intake Last Liquid Date 04/04/25 Last Liquid Time 20:00 Last Solid Date 04/04/25 Last Solid Time 20:00 Social No alcohol and No tobacco Exam alert, oriented x 3, clear to auscultation bilaterally and regular rate & rhythm Airway Submandibular: within normal limits Cervical ROM: within normal limits Mallampati: Class I Dentition: full Anesthetic Plan ASA status: 2 Anesthesia: MAC Other: No prior issues with anesthesia NPO since yesterday morning History of GERD on Protonix Patient states that she has been having difficulty swallowing recently with food getting stuck in the bottom of her throat History of asthma, controlled with inhalers METs greater than 4 Plan for MAC anesthesia Medications/Allergies Home Medications ?Medication ?Instructions ?Recorded ?Confirmed ?Last Taken ?Type Sole Supports #1 ea 11/10/21 04/02/25 04/03/25 Rx thyroid (pork) 60 mg tablet (PROFESSOR OF VIOLIN 60 mg PO DAILY #30 tabs 02/04/23 04/03/25 04/04/25 Rx Thyroid) progesterone micronized 200 mg 400 mg (2 x 200 mg) PO .HS #30 caps 07/21/23 04/03/25 03/15/25 Rx capsule estradiol 25 mg implant pellet 25 mg SUBCUT .IN 08/22/24 04/03/25 04/03/25 History pantoprazole 40 mg tablet,delayed 40 mg PO DAILY #90 tabs 08/22/24 04/03/25 04/04/25 Rx release testosterone 100 mg implant pellet 100 mg SUBCUT DIRECTED 08/22/24 04/05/25 03/15/25 History citalopram 20 mg tablet 20 mg PO DAILY #90 tabs 12/11/24 04/03/25 04/03/25 Rx albuterol sulfate 90 mcg/actuation 2 puff inhalation Q6H PRN 03/13/25 04/03/25 04/03/25 Rx aerosol inhaler (Ventolin HFA) shortness of breath or wheezing #8.5 grams triamcinolone acetonide 0.5 % 1 applic topical BID #15 grams 03/13/25 04/03/25 04/03/25 Rx topical cream sucralfate 100 mg/mL oral 10 ml PO BID 30 days #600 mL 04/02/25 04/03/25 04/03/25 Rx suspension sumatriptan succinate 100 mg 100 mg PO PRN PRN Headache 04/05/25 04/05/25 04/03/25 History tablet (Imitrex) Allergies Allergy/AdvReac Type Severity Reaction Status Date / Time amoxicillin (From Augmentin) Allergy Severe ALGY-Rash Verified 04/03/25 08:13 clavulanic acid (From Allergy Severe ALGY-Rash Verified 04/03/25 08:13 Augmentin) Current Medications Generic Name Dose Route Start Last Admin Trade Name Freq PRN Reason Stop Dose Admin Sodium Chloride 1,000 mls @ 15 mls/hr 04/05/25 10:55 04/05/25 11:21 Sodium Chloride 0.9% IV 04/06/25 10:54 15 mls/hr .Q24H PRN Administration COLONOSCOPY FLUIDS PFSH Anesthesia Medical History Depression Surgical History History of back surgery History of hysterectomy History of bladder repair surgery Family History Mother Cancer Other Diabetes Social History Smoking and tobacco/nicotine status: never used tobacco/nicotine Second hand smoke exposure: No Alcohol intake: current Alcohol intake frequency: holidays/special occasions only Alcohol type: beer Substance/Drug Use: never Lives independently: Yes Household members: spouse and children Marital status: service: No Current occupational status: employed Current gender identity: Female Special francis needs: No Agree to transfusion: Yes
[2025-04-05 12:10] VITALS: BP 122/78; PULSE 74; RESP 16; TEMP 36.1; O2SAT 98
[2025-04-05 12:15] VITALS: BP 109/78; PULSE 68; RESP 16; O2SAT 97
--- NOTE | 2025-04-05 12:40 | ANE.PACU2 ---
Inpatient post-anesthesia follow up: Airway intact: Yes Vital signs: Temperature 97.0 F Pulse Rate 68 Respiratory Rate 16 Blood Pressure 109/78 Pulse Oximetry 97 Oxygen Delivery Me thod Room Air Oxygen Flow Rate Fraction of Inspir ed Oxygen Hydration adequate: Yes Nausea and vomiting: No Pain level: 1 Mental status: Baseline
== END 2025-04-05 12:40 | disposition home or self-care (01) ==
PROVIDERS: PCP Nurse Practitioner Family; Visit Provider Student in an Organized Health Care Education/Training Program
PROC: 0DJ08ZZ Inspection of Upper Intestinal Tract, Via Natural or Artificial Opening Endoscopic (ICD-10-PCS; principal; 2025-04-05 12:30)
DX: R12 Heartburn (principal); K21.9 Gastro-esophageal reflux disease without esophagitis; K29.80 Duodenitis without bleeding; K29.70 Gastritis, unspecified, without bleeding; R13.10 Dysphagia, unspecified; J45.909 Unspecified asthma, uncomplicated; F32.A Depression, unspecified
CPT/HCPCS: 43239; 88305; J2704; J7030

== ENCOUNTER → 2025-04-09 12:38 | Outpatient (BNVA) | payer BC, SELFPAY | PROVIDERS: PCP Nurse Practitioner Family; Visit Provider Podiatrist Foot & Ankle Surgery | DX: M79.672 Pain in left foot (principal); S92.415A Nondisplaced fracture of proximal phalanx of left great toe, initial encounter for closed fracture; X58.XXXA Exposure to other specified factors, initial encounter | CPT/HCPCS: 73630 ==